=== PATIENT | male | born 1955 | race Caucasian/White ===

== ENCOUNTER 2018-02-14 06:15 | Day surgery (SDC) | payer OTHER ==
[2018-02-12 15:07] LABS: HEMATOCRIT 46.9 % (42.0-54.0); HEMOGLOBIN 16.2 g/dL (13.5-17.5); MCH 31.7 pg (26.0-34.0); MCHC 34.5 g/dL (31.0-37.0); MCV 91.8 fL (80.0-100.0); MEAN PLATELET VOLUME 10.3 fL (7.4-10.4); RBC 5.11 10x6/uL (4.20-6.10); RDW 14.5 % (11.5-14.5); WBC 10.8 10x3/uL (4.8-10.8)
[~2018-02-14] VITALS: Ht 175.3 cm; Wt 82.7 kg
--- NOTE | ~2018-02-14 | OP ---
PATIENT NAME: ARELY ANDREW MEDICAL RECORD: [id number] :51 LOCATION:[facility] ADMISSION DATE: SURGEON: JASPREET BUCIO MD DATE OF OPERATION: 02/14/2018 SURGEON: Jaspreet Bucio MD ANESTHESIA: TIVA by Scot Meng CRNA. DIAGNOSIS: Elevated PSA 8.4. PROCEDURE: Transrectal ultrasound and prostate biopsy. FINDINGS: 52 gram prostate with no hypoechoic areas. SPECIMENS: Prostate biopsy cores. ESTIMATED BLOOD LOSS: None. CLINICAL HISTORY: This is a 62-year-old male, who was found to have an elevated PSA of 8.4. He does not have a family history of prostate cancer. He comes today for a transrectal ultrasound and prostate biopsy. He did not wish to have a digital rectal examination done while he was awake and he asked to have it done while he is asleep. He is not allergic to any medications. 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 DESCRIPTION OF PROCEDURE: The patient was given IV sedation. He was placed in lithotomy position. Digital rectal examination revealed a moderate sized prostate about 40 to 50 grams with no hard nodules palpated. We then introduced a transrectal ultrasound probe. Prostate size measurements were obtained and the prostate was measured at 52 grams. Sextant biopsies were obtained with at least 3 cores from each sextant. Once all the specimens were obtained, the procedure was terminated. The patient was awakened and brought back to the recovery room. I will see him next week to go over the pathology results with him. TRANSINT:[id number] Voice Confirmation ID: [id number] DOCUMENT ID: [id number] JASPREET BUCIO MD at 0949 CC: [id number] DICTATION DATE: 02/14/18908 JOB COACHING: 02/14/18 0930 REG [facility] [address] [place] [address]
[~2018-02-14 06:15] MED LIST: NORVASC10 MG PO; PAXIL10 MG PO
[2018-02-14 07:05] VITALS: BP 119/74; Ht 175.3 cm; Wt 82.7 kg
== END 2018-02-14 10:40 | disposition home or self-care (01) ==
LOC: D.PAN 06:15 → D.OPS 07:30 → D.PAN 08:00 → D.OPS 08:05 → D.PAN 08:05 → D.OPS 09:45 → D.PAN 10:40
PROVIDERS: Urology
DX: R97.20 Elevated prostate specific antigen [PSA] (principal); Z01.812 Encounter for preprocedural laboratory examination